=== PATIENT | female | born 1975 | race Caucasian/White ===

== ENCOUNTER 2023-09-02 22:45 | Inpatient (IN) | payer OTHER ==
[~2023-09-02] VITALS: Ht 154.9 cm; Wt 55.3 kg
[2023-09-02 23:44] LABS: HEMATOCRIT. 37.6 % (36.0-48.0); HEMOGLOBIN. 12.5 g/dL (12.0-16.0); MEAN CORPUSCULAR HEMOGLOBIN 29.5 pg (28.0-32.0); MEAN CORPUSCULAR HGB CONC 33.3 g/dL (31.0-37.0); MEAN CORPUSCULAR VOLUME 88.4 fL (81.0-99.0); MEAN PLATELET VOLUME 9.6 fl (7.4-10.4); PLATELET 218 x1000/uL (130-400); RED BLOOD CELL COUNT 4.25 mill/uL (4.2-5.4); RED CELL DISTRIBUTION WIDTH 14.5 % (11.6-14.6); WHITE BLOOD COUNT 17.2 x1000/uL (4.5-11.0)
[2023-09-02 23:45] LABS: DIFFERENTIAL COMMENT 1
[2023-09-02 23:48] LABS: CHLORIDE 105 mEq/L (98-107); POTASSIUM 3.6 mEq/L (3.5-5.1); SODIUM 138 mEq/L (136-145)
[2023-09-02 23:49] LABS: CALCIUM 9.9 mg/dL (8.7-10.4); CARBON DIOXIDE 27 mEq/L (21-32)
[2023-09-02 23:54] LABS: CREATININE 0.7 mg/dL (0.6-1.0); GLUCOSE 113 mg/dL (70-105); UREA NITROGEN BLOOD 17 mg/dL (9-23)
[2023-09-02 23:56] LABS: ALANINE AMINOTRANSFERASE 35 IU/L (10-49); ALBUMIN 4.6 g/dL (3.2-4.8); ASPARTATE AMINOTRANSFERASE 26 IU/L (<34); BILIRUBIN DIRECT 0.2 mg/dL (<=3.0)
[2023-09-02 23:57] LABS: PROTEIN TOTAL 7.2 g/dL (6.0-8.3)
[2023-09-03 00:18] LABS: CLARITY URINE CLEAR (CLEAR); COLOR URINE DARK YELLOW (YELLOW); GLUCOSE URINE NEGATIVE (NEGATIVE); KETONES URINE TRACE (NEGATIVE); LEUKOCYTE ESTERASE URINE NEGATIVE (NEGATIVE); NITRITE URINE NEGATIVE (NEGATIVE); OCCULT BLOOD URINE NEGATIVE (NEGATIVE); PH URINE 5.5 (4.5-8.0); PROTEIN URINE TRACE (NEGATIVE); SPECIFIC GRAVITY URINE 1.034 (1.005-1.030); UROBILINOGEN URINE 0.2 E.U./dL (0.2-1.0)
[2023-09-03 02:40] LABS: HCG SCREEN NEGATIVE
[2023-09-03] MEDS ORDERED: DICYCLOMINE 10 MG/5 ML ORAL SYR PO STA (05:19)
[2023-09-03] MEDS: MAGNESIUM/ALUMINUM HYDROXIDE/SIMETHICONE 30ML UDC PO STA (05:37)
[2023-09-03] MEDS: DICYCLOMINE HCL 10MG CAPSULE PO NR (05:37)
[2023-09-03] MEDS: ONDANSETRON 4MG ODT PO PRN (05:38)
[2023-09-03 07:50] LABS: PLATELET ESTIMATE NORMAL; SQUAMOUS EPITHELIAL CELL URINE 1+ /lpf (RARE/1+)
[2023-09-03 07:52] LABS: WBC URINE 0-2 /hpf (0-2)
[2023-09-03 07:53] LABS: BACTERIA URINE 1+; RBC URINE 0-2 /hpf (0-2)
[2023-09-03] MEDS: MORPHINE SULFATE 4 MG/ML INJ (FOR IV/IM USE) IV ONE (08:57)
[2023-09-03 09:35] LABS: HEMATOCRIT. 36.2 % (36.0-48.0); MEAN CORPUSCULAR HEMOGLOBIN 29.5 pg (28.0-32.0); MEAN CORPUSCULAR HGB CONC 33.3 g/dL (31.0-37.0); MEAN CORPUSCULAR VOLUME 88.5 fL (81.0-99.0); MEAN PLATELET VOLUME 9.4 fl (7.4-10.4); PLATELET 197 x1000/uL (130-400); RED BLOOD CELL COUNT 4.09 mill/uL (4.2-5.4); RED CELL DISTRIBUTION WIDTH 14.8 % (11.6-14.6); WHITE BLOOD COUNT 15.5 x1000/uL (4.5-11.0)
[2023-09-03 09:39] LABS: DIFFERENTIAL COMMENT 1
[2023-09-03 10:19] LABS: PLATELET ESTIMATE NORMAL
[2023-09-03] MEDS ORDERED: ONDANSETRON HCL 4MG/2ML INJ IV PRN (11:30)
[2023-09-03] MEDS ORDERED: ACETAMINOPHEN 325MG TABLET PO PRN ×2 (11:30)
[2023-09-03] MEDS ORDERED: CLONIDINE 0.1MG TABLET PO PRN (11:30)
[2023-09-03] MEDS ORDERED: HYDROCODONE/ACETAMINOPHEN 5/325MG TABLET PO PRN (11:30)
[2023-09-03] MEDS ORDERED: DOCUSATE SODIUM 100MG CAPSULE PO PRN (11:30)
[2023-09-03] MEDS ORDERED: NALOXONE HCL 0.4MG/ML VIAL IV PRN (11:45)
[2023-09-03 12:01] VITALS: BP 100/65; PULSE 81; RESP 19; TEMP 97.6
[2023-09-03] MEDS: PANTOPRAZOLE SODIUM 40 MG/VIAL IV SCH (14:05)
[2023-09-03] MEDS: SODIUM CHLORIDE 0.9% 1,000 ML IV SCH (14:05)
[2023-09-03 16:00] VITALS: BP 95/62; PULSE 65; RESP 20; TEMP 98.1
[2023-09-03 19:35] LABS: *AMPHETAMINES SCREEN URINE NEGATIVE (NEGATIVE); *BARBITURATES SCREEN URINE NEGATIVE (NEGATIVE); *BENZODIAZEPINES SCREEN URINE NEGATIVE (NEGATIVE); *COCAINE SCREEN URINE NEGATIVE (NEGATIVE); CANNABINOID URINE SCREEN NEGATIVE (NEGATIVE); ECSTASY MDMA SCREEN URINE NEGATIVE (NEGATIVE); METHADONE URINE SCREEN NEGATIVE (NEGATIVE); OPIATES URINE SCREEN PRESUMPTIVE POSITIVE (NEGATIVE); PHENCYCLIDINE URINE SCREEN NEGATIVE (NEGATIVE)
[2023-09-04 00:15] VITALS: BP 109/59; PULSE 66; TEMP 97.8; O2SAT 98
== END 2023-09-03 23:19 | disposition short-term general hospital (02) | DRG 392 ==
LOC: ER 22:45 → 6EST 09-03 09:06 → EDBEDREQTM 09-03 09:09 → EDBEDREQ 09-03 09:09 → 6EST 09-03 10:35
PROVIDERS: ADMIT Family Medicine Adult Medicine; ATTEND Family Medicine Adult Medicine
DX: R10.10 Upper abdominal pain, unspecified (principal); D72.825 Bandemia; F17.200 Nicotine dependence, unspecified, uncomplicated; D72.829 Elevated white blood cell count, unspecified; Z90.49 Acquired absence of other specified parts of digestive tract
CPT/HCPCS: 36415; 74176; 76830; 76856; 80048; 80076; 80305; 81003; 84703; 85025; 99285; C9113; J2270; J7030; Q0162